=== PATIENT | female | born 1970 | race Two or more races ===

== ENCOUNTER 2024-12-20 04:35 | Emergency (ER) | payer MEDICAID, SELFPAY ==
[2024-12-20 04:43] VITALS: BP 150/90; PULSE 103; RESP 20; TEMP 36.9; O2SAT 96
--- NOTE | 2024-12-20 04:52 | XR_ITS ---
Examination: Duplex scan of the lower extremity, unilateral left Date and time of exam: December 20, 2024, 0523 hours INDICATIONS: Left leg redness swelling and pain this week Technique: Duplex scan of the extremity veins using B-mode/grayscale imaging and Doppler spectral analysis and color flow Attention is directed to internal echogenicity, compression and augmentation involving these veins, color flow assessment, spectral analysis Findings: Major deep venous structures in the extremity demonstrate normal course and caliber. There is no evidence of deep vein thrombosis. Normal color flow and spectral analysis Impression: Negative for DVT..
--- NOTE | 2024-12-20 04:52 | PD.EDRME ---
Rapid Medical Screening Exam E Arrival date/time: 12/20/24 04:35 54F with history of HTN and CAD/IL presents to ED with 2 days of LLE swelling and pain/itchiness. Symptoms started as three small growth/bites on LLE. Chief Complaint: Skin/Abscess/Foreign Body Vital signs: Vital Signs Temperature 98.5 F 12/20/24 04:43 Pulse Rate 103 H 12/20/24 04:43 Respiratory Rate 20 12/20/24 04:43 Blood Pressure 150/90 H 12/20/24 04:43 Pulse Oximetry (%) 96 12/20/24 04:43 Oxygen Delivery Method Room Air 12/20/24 04:43
[2024-12-20] MEDS: DiphenhydrAMINE 25 MG CAPSULE PO (05:05)
[2024-12-20] MEDS: DEXAMETHASONE SOD PHOS INJ 10 MG/ML VIAL PO (05:06)
--- NOTE | 2024-12-20 06:34 | PC.NURSE ---
PATIENT SIGNED OUT AMA AT THIS TIME. PATIENT STATED THAT SHE WANTED TO GO HOME AND REST, WILL FOLLOW UP WITH PRIMARY PROVIDER. RISKS OF LEAVING AMA INCLUDING THE POSSIBILITY OF EXPLAINED TO PATIENT AND PATIENT VERBALIZED UNDERSTANDING. PATIENT IS ALERT AND ORIENTED X4 GCS 15. PATIENT EXITED ED AT THIS TIME.
== END 2024-12-20 06:44 | disposition left against medical advice (07) ==
LOC: SERX 05:39
PROVIDERS: Emergency Provider Emergency Medicine; PCP Family Medicine
DX: M79.89 Other specified soft tissue disorders (principal); Z53.29 Procedure and treatment not carried out because of patient's decision for other reasons; I10 Essential (primary) hypertension; I25.10 Atherosclerotic heart disease of native coronary artery without angina pectoris; I25.2 Old myocardial infarction
CPT/HCPCS: 93971; 99281; J1100; A9270